=== PATIENT | male | born 1960 | race Caucasian/White ===

== ENCOUNTER 2021-06-15 05:01 | Emergency (ER) | payer OTHER, SELFPAY ==
--- NOTE | 2021-06-15 | ECG_ITS ---
Test Reason : CHEST PAIN Blood Pressure : / mmHG Vent. Rate : 100 BPM Atrial Rate : 100 BPM P-R Int : 182 ms QRS Dur : 090 ms QT Int : 344 ms P-R-T Axes : 044 024 053 degrees QTc Int : 443 ms Normal sinus rhythm Normal ECG No previous ECGs available Referred By: Sidney Ness Electronically Signed By:Richard Bradley
--- NOTE | ~2021-06-15 | CT_ITS ---
EXAMINATION: CT ABDOMEN AND PELVIS WITH CONTRAST CLINICAL INFORMATION: Abdominal pain COMPARISON: None TECHNIQUE: Multidetector volumetric images were obtained from the superior aspect of the liver through the pubic symphysis following administration 85 mL of Omnipaque 350 intravenous contrast. Sagittal and coronal reformatted images were obtained on the technologist's workstation. Oral contrast: No This CT examination was performed using dose optimization techniques as appropriate, variously including the following: *Automated exposure control *Adjustment of mA and/or kV according to patient size (this includes techniques or standardized protocols for targeted exams where dose is matched to indication/reason for exam; i.e. extremities or head) *Use of iterative reconstruction technique DLP: 741 mGy-cm FINDINGS: LUNG BASES: There is right basilar platelike atelectasis. The heart size is normal. LIVER, GALLBLADDER, AND BILIARY TREE: The liver is normal in size, shape, and attenuation. No focal hepatic lesion or biliary ductal dilatation is present. The gallbladder is unremarkable with no evidence of radiopaque gallstones, gallbladder wall thickening, or obvious pericholecystic inflammatory changes. PANCREAS: Unremarkable. SPLEEN: The spleen is unremarkable. There is a small accessory splenule measuring 7 mm. ADRENAL GLANDS: Unremarkable. KIDNEYS AND URETERS: The kidneys are normal in size, shape, and attenuation. No hydronephrosis, hydroureter, or calculi seen. No perinephric stranding. There are bilateral renal cysts. The largest cyst lower pole right kidney measures 5.5 x 4.6 cm. A smaller cyst upper pole left kidney measures 1.3 x 1.2 cm. BLADDER: Unremarkable. GASTROINTESTINAL TRACT: There is minimal scattered stool in the gas throughout the colon without any distention. The small bowel loops are normal caliber. The appendix is normal caliber. No inflammatory process seen in the abdomen. ABDOMINAL WALL: No significant hernia is appreciated. LYMPH NODES: There are small shotty retroperitoneal lymph nodes measuring 1.4 x 0.7 cm on coronal image 54/5. VASCULAR: Unremarkable. PELVIC VISCERA: The prostate gland is mildly enlarged with central gland calcification. The periprostatic fat planes are preserved normal. No free fluid. No abnormal pelvic lymph nodes. No evidence of inguinal hernia. OSSEOUS STRUCTURES: No lytic or sclerotic process seen. There are degenerative disc changes with ventral and posterior spondylosis L2-L3 disc level. No aggressive lytic or sclerotic process seen. There is a right L4-L5 moderate facet joint arthropathy and hypertrophy. CT/CT abdomen pelvis w con IMPRESSION: No acute intra-abdominal process seen. Bilateral renal cysts. No radiopaque calculi or hydronephrosis. Normal appendix. Mild prostate enlargement. Fleischner guidelines were followed.
[2021-06-15 05:36] VITALS: BP 131/93; PULSE 107; RESP 24; TEMP 36.8; O2SAT 95; BMI 34.9
[2021-06-15 06:23] LABS: Hematocrit 50.2 % (42.0-52.0); Hemoglobin 17.2 g/dl (14.0-18.0); Mean Corpuscular HGB Conc 34.3 g/dl (31.0-36.0); Mean Corpuscular Hemoglobin 31.4 pg (27.0-33.0); Mean Corpuscular Volume 91.8 fL (80.0-98.0); Mean Platelet Volume 10.5 fL (9.4-12.4); Platelet Count 299 X10*3/uL (160-400); Red Blood Count 5.47 X10*6/uL (4.60-5.80); Red Cell Distribution Width 11.9 % (11.0-16.0); White Blood Count 11.5 X10*3/uL (4.8-10.8)
[2021-06-15 06:40] LABS: Alanine Aminotransferase 19 U/L (0-40); Albumin Level 3.9 g/dL (3.5-5.0); Alkaline Phosphatase 45 U/L (39-117); Anion Gap 13 (12-20); Aspartate Amino Transferase 11 U/L (5-37); Bilirubin Total 0.5 mg/dL (0.0-1.0); Blood Urea Nitrogen 16 mg/dL (9-16); Calcium 9.1 mg/dL (8.4-10.2); Carbon Dioxide 25 mmol/L (22-29); Chloride 104 mmol/L (96-108); Creatinine Clr Calc Pharmacy 70.6; Estimated Glomerular Filt Rate 57; Glucose Random 111 mg/dL (60-115); Potassium 3.9 mmol/L (3.3-5.1); Sodium 138 mmol/L (135-145); Total Protein 6.5 g/dL (6.5-8.0)
[2021-06-15 06:41] LABS: COVID-19 Test Negative (Negative)
--- NOTE | 2021-06-15 07:15 | ED_ITS ---
HPI - General Adult General Chief complaint: General Medical Stated complaint: Vomiting/Diarrhea x3 days Time Seen by Provider: 06/15/21 06:52 Source: patient Mode of arrival: ambulatory Limitations: no limitations History of Present Illness HPI narrative: his is 61 years old the patient presented to the emergency d [facility] with chief complaint no nausea vomiting and diarrhea x3 days, denies any fever, chills, vomiting is described as a clear Onset (ago): day(s) (3) Radiation: non-radiation Severity: moderate Pain Consistency: constant Relieving factors: none Exacerbating factors: none Associated symptoms: denies other symptoms Related Data Previous Rx's Medication Instructions Recorded ondansetron 4 mg disintegrating 4 mg PO Q8H 4 Days #12 tab 06/15/21 tablet Allergies Allergy/AdvReac Type Severity Reaction Status Date / Time morphine Allergy Unknown anaphylaxis Unverified 05/06/19 00:00 Bee Stings Allergy Unknown Uncoded 01/19/16 00:00 Review of Systems Review of Systems: Yes all other systems are reviewed and are negative Constitutional: Constitutional: Reports no additional constitutional co mplaints Eyes: Eyes: Reports no additional eye complaints ENT: Reports system reviewed and no additional complaints, except as documented Cardiovascular: Cardiovascular: Reports no additional cardiovascular complaints Respiratory: Respiratory: Reports no additional respiratory complaints [facility] Social History Social History Advance Directives: No Advance Directives Information Provided: No Physical Exam Vital Signs: Vital Signs: Last Vital Signs Temp 98.2 F 06/15/21 05:36 Pulse 85 06/15/21 09:35 Resp 24 H 06/15/21 05:36 BP 124/79 06/15/21 09:35 Pulse Ox 96 06/15/21 09:35 BMI result Body Mass Index 34.9 Const: Other: he looks well is not toxic-appearing General: cooperative and no acute distress HENMT: Head: Yes normal to inspection Face and sinus: Yes normal facial exam Mouth: Normal oral and palatal mucosa present Throat: Yes posterior oropharynx normal Neck: Neck: Yes normal visual inspection and Yes full ROM Chest: Chest palpation & inspection: normal inspection of the chest Resp: Effort & Inspection: normal respiratory effort Auscultation: clear to auscultation bilaterally Cardio: Jugular venous distension: no JVD Rate: regular rate Rhythm: regular rhythm GI: Inspection: Yes normal to inspection Palpation (GI): Soft to palpation, not firm, nontender and no guarding Skin: General skin exam: no rashes or lesions noted, elasticity normal and turgor normal Rashes: no rashes Course Reevaluation(s) Reevaluation #1: feels much better ,tolerated po well,Ct Scan abdomen and pelvis negative OK to d/c home Medical Decision Making Lab Data Result diagrams: 06/15/21 06:10 06/15/21 06:10 Labs: Lab Results 06/15/21 06/15/21 06/15/21 Range/Units 06:10 06:10 06:10 WBC 11.5 H (4.8-10.8) X10*3/uL RBC 5.47 (4.60-5.80) X10*6/uL Hgb 17.2 (14.0-18.0) g/dl Hct 50.2 (42.0-52.0) % MCV 91.8 (80.0-98.0) fL MCH 31.4 (27.0-33.0) pg MCHC 34.3 (31.0-36.0) g/dl RDW 11.9 (11.0-16.0) % Plt Count 299 (160-400) X10*3/uL MPV 10.5 (9.4-12.4) fL Absolute Nucleated RBC 0.000 (0.0-0.012) X10*3/uL Nucleated RBC % (auto) 0.0 (0.0-0.2) /100WBC Sodium 138 (135-145) mmol/L Potassium 3.9 (3.3-5.1) mmol/L Chloride 104 (96-108) mmol/L Carbon Dioxide 25 (22-29) mmol/L Anion Gap 13 (12-20) BUN 16 (9-16) mg/dL Creatinine 1.27 (0.5-1.4) mg/dL Estim Creat Clear Calc 70.6 Estimated GFR 57 Random Glucose 111 (60-115) mg/dL Calcium 9.1 (8.4-10.2) mg/dL Total Bilirubin 0.5 (0.0-1.0) mg/dL AST 11 (5-37) U/L ALT 19 (0-40) U/L Alkaline Phosphatase 45 (39-117) U/L Total Protein 6.5 (6.5-8.0) g/dL Albumin 3.9 (3.5-5.0) g/dL COVID-19 (JASSON) Negative (Negative) COVID-19 Clin Com See Note Imaging Data CT scan - abdomen: Radiologist's impression: [address] [address] [address] Scan Report Signed Patient: Bobby Herrmann MR#: [id number] : 1960 Acct:[id number] Age/Sex: 61 / M ADM Date: 06/15/21 Loc: HO.ED Attending Dr: Ordering Physician: Sidney Ness MD Date of Service: 06/15/21 Procedure(s): CT abdomen pelvis w con Accession Number(s): [id number] cc: Sidney Ness MD~ EXAMINATION: CT ABDOMEN AND PELVIS WITH CONTRAST? CLINICAL INFORMATION: Abdominal pain? COMPARISON: None? TECHNIQUE: Multidetector volumetric images were obtained from the superior aspect of the liver through the pubic symphysis following administration 85 mL of Omnipaque 350 intravenous contrast. Sagittal and coronal reformatted images were obtained on the technologist's workstation.? Oral contrast: No This CT examination was performed using dose optimization techniques as appropriate, variously including the following: *Automated exposure control *Adjustment of mA and/or kV according to patient size (this includes techniques or standardized protocols for targeted exams where dose is matched to indication/reason for exam; i.e. extremities or head) *Use of iterative reconstruction technique DLP: 741 mGy-cm FINDINGS: LUNG BASES: There is right basilar platelike atelectasis. The heart size is normal.? LIVER, GALLBLADDER, AND BILIARY TREE: The liver is normal in size, shape, and attenuation. No focal hepatic lesion or biliary ductal dilatation is present. The gallbladder is unremarkable with no evidence of radiopaque gallstones, gallbladder wall thickening, or obvious pericholecystic inflammatory changes.? PANCREAS: Unremarkable.? SPLEEN: The spleen is unremarkable. There is a small accessory splenule measuring 7 mm.? ADRENAL GLANDS: Unremarkable.? KIDNEYS AND URETERS: The kidneys are normal in size, shape, and attenuation. No hydronephrosis, hydroureter, or calculi seen. No perinephric stranding. There are bilateral renal cysts. The largest cyst lower pole right kidney measures 5.5 x 4.6 cm. A smaller cyst upper pole left kidney measures 1.3 x 1.2 cm. BLADDER: Unremarkable.? GASTROINTESTINAL TRACT: There is minimal scattered stool in the gas throughout the colon without any distention. The small bowel loops are normal caliber. The appendix is normal caliber. No inflammatory process seen in the abdomen.? ABDOMINAL WALL: No significant hernia is appreciated.? LYMPH NODES: There are small shotty retroperitoneal lymph nodes measuring 1.4 x 0.7 cm on coronal image 54/5. VASCULAR: Unremarkable. PELVIC VISCERA: The prostate gland is mildly enlarged with central gland calcification. The periprostatic fat planes are preserved normal. No free fluid. No abnormal pelvic lymph nodes. No evidence of inguinal hernia.? OSSEOUS STRUCTURES: No lytic or sclerotic process seen. There are degenerative disc changes with ventral and posterior spondylosis L2-L3 disc level. No aggressive lytic or sclerotic process seen. There is a right L4-L5 moderate facet joint arthropathy and hypertrophy. CT/CT abdomen pelvis w con IMPRESSION: No acute intra-abdominal process seen. ? Bilateral renal cysts. No radiopaque calculi or hydronephrosis. ? Normal appendix. ? Mild prostate enlargement.? ? Fleischner guidelines were followed. Dictated By: Blanco Johnson MD Signed By: <Electronically signed by Blanco Johnson MD in OV> 06/15/2138 DD/ 0849 Discharge Plan Discharge Clinical Impression: Vomiting Patient Disposition: Home, Self-Care Instructions: Acute Nausea and Vomiting (ED) Prescriptions: New ondansetron 4 mg tablet,disintegrating 4 mg PO Q8H 4 Days Qty: 12 RF: 0 Referrals: Len Burns MD [Primary Care Provider] - 2 days Interventions: ED Discharge Assessment Last Done: 06/15/21 10:40 Discharge Date/Time: 06/15/21 10:40
[2021-06-15] MEDS: Metoclopramide HCl 10 MG/2 ML VIAL IVPUSH (07:38)
[2021-06-15] MEDS: 0.9 % Sodium Chloride 1,000 ML 999 ML IVCONT (07:39)
[2021-06-15] MEDS: iohexoL 350 MG/ML 100 ML INFUS..BTL 85 ML IV (08:35)
[2021-06-15] MEDS: Famotidine/PF 20 MG/2 ML VIAL IVPUSH (08:39)
[2021-06-15 09:35] VITALS: BP 124/79; PULSE 85; O2SAT 96
== END 2021-06-15 10:40 | disposition home or self-care (01) ==
PROVIDERS: Emergency Provider Emergency Medicine; PCP Internal Medicine
DX: R11.10 Vomiting, unspecified (principal); Z20.822 Contact with and (suspected) exposure to COVID-19
CPT/HCPCS: 36415; 74177; 80053; 85027; 87635; 93005; 96361; 96374; 96375; 99284; J2765; Q9967